=== PATIENT | female | born 1965 | race Two or more races ===

== ENCOUNTER 2020-10-22 13:37 | Inpatient (IN) | payer SELFPAY ==
[2020-10-22] MEDS ORDERED: Sodium Chloride 0.9% 10 ML Syringe FLUSH PRN ×2 (13:58→15:03)
--- NOTE | 2020-10-22 13:59 | EDM.PDOC ---
ED HPI GENERAL MEDICAL PROBLEM - General Chief Complaint: Respiratory Problem Stated Complaint: SOB/FEVER/FATIGUE/COUGH Time Seen by Provider: 10/22/20 13:53 Source of Information: Reports: Patient, RN Notes Reviewed - History of Present Illness INITIAL COMMENTS - FREE TEXT/NARRATIVE: 54 yr old female with onset of cough, fever, chills, dsypnea about 11 days ago. The difficulty breathing at rest and especially with any type of moverment has become worse yesterday and today. Temp 103.5 on arrival to ED. She has had Coleman, myalgias, generalized weakness. A couple of episodes of mild diarrhea, nothing severe. Has assumed she has covid. Has been self isolating. Has not been tested. Hx of mild borderline asthma, uses an inhaler occasionally. Does not smoke. No known hx Htn, or CAD. Hx of gestational diabetes. Generalized Pain Score (Numeric/FACES): 8 - Related Data Allergies Allergy/AdvReac Type Severity Reaction Status Date / Time shellfish derived Allergy Itching Verified 10/22/20 13:53 Sulfa (Sulfonamide Allergy Rash Verified 10/22/20 13:53 Antibiotics) Home Meds: Home Meds . [No Known Home Meds] 10/22/20 [History] ED ROS GENERAL - Review of Systems Review Of Systems: See Below Constitutional: Reports: Fever, Chills HEENT: Denies: Throat Pain Respiratory: Reports: Shortness of Breath, Cough Cardiovascular: Denies: Chest Pain GI/Abdominal: Reports: Diarrhea (a couple of episodes of mild diarrhea ), Decreased Appetite. Denies: Abdominal Pain, Nausea, Vomiting : Reports: No Symptoms Musculoskeletal: Reports: Other (generalized achiness) Skin: Denies: Rash Neurological: Reports: Headache ED EXAM, GENERAL - Physical Exam Exam: See Below General Appearance: Alert, Moderate Distress Head: Atraumatic Neck: Supple Respiratory/Chest: Respiratory Distress. No: Rales, Rhonchi, Wheezing Cardiovascular: Tachycardia GI/Abdominal: Soft, Non-Tender Extremities: Normal Inspection. No: Pedal Edema, Leg Pain, Increased Warmth, Redness Neurological: Alert, Oriented, No Motor/Sensory Deficits Skin Exam: Warm, Dry, Normal Color #1 Interpretation EKG Date: 10/22/20 Rhythm: Other (sinus tach) Tracy: Normal P-Wave: Present QRS: RBBB Course - Vital Signs Last Recorded V/S: Last Vital Signs Temp 103.6 F H 10/22/20 13:49 Pulse 129 H 10/22/20 13:49 Resp 28 H 10/22/20 13:49 BP 146/86 H 10/22/20 13:49 Pulse Ox 88 L 10/22/20 13:49 - Orders/Labs/Meds Orders: Active Orders 24 hr Category Date Time Status EKG 12 Lead [EKG Documentation Completion] [RC] STAT Care 10/22/20 13:57 Active Peripheral IV Care [RC] . DIRECTED Care 10/22/20 13:59 Active Chest 1V Frontal [CR] Stat Exams 10/22/20 13:56 Taken Chest PE [Ang Chest] [CT] Stat Exams 10/22/20 14:44 Taken Sodium Chloride 0.9% [Normal Saline] 100 ml Med 10/22/20 15:15 Active IV ASDIRECTED Sodium Chloride 0.9% [Saline Flush] Med 10/22/20 13:58 Active 10 ml FLUSH ASDIRECTED PRN Sodium Chloride 0.9% [Saline Flush] Med 10/22/20 15:03 Active 10 ml FLUSH ONETIME PRN Peripheral IV Insertion Adult [OM.PC] Stat Oth 10/22/20 13:59 Ordered Medication Orders Sodium Chloride (Normal Saline) 100 mls @ 60 mls/hr IV ASDIRECTED MICHOACANO Last Admin: 10/22/20 15:21 Dose: 60 mls/hr Documented by: GIORGI Sodium Chloride (Saline Flush) 10 ml FLUSH ASDIRECTED PRN PRN Reason: Keep Vein Open Last Admin: 10/22/20 14:12 Dose: 10 ml Documented by: VALENTINA Sodium Chloride (Saline Flush) 10 ml FLUSH ONETIME PRN PRN Reason: Keep Vein Open Last Admin: 10/22/20 15:21 Dose: 10 ml Documented by: GIORGI Labs: Laboratory Tests 10/22/20 10/22/20 10/22/20 Range/Units 14:10 14:10 14:18 WBC 7.87 (3.98-10.04) K/mm3 RBC 4.57 (3.98-5.22) M/mm3 Hgb 13.1 (11.2-15.7) gm/dl Hct 40.1 (34.1-44.9) % MCV 87.7 (79.4-94.8) fl MCH 28.7 (25.6-32.2) pg MCHC 32.7 (32.2-35.5) g/dl RDW Std Deviation 46.6 H (36.4-46.3) fL Plt Count 260 (182-369) K/mm3 MPV 11.5 (9.4-12.3) fl Neut % (Auto) 80.9 H (34.0-71.1) % Lymph % (Auto) 10.8 L (19.3-51.7) % Nicholas % (Auto) 6.9 (4.7-12.5) % Eos % (Auto) 0.8 (0.7-5.8) Baso % (Auto) 0.3 (0.1-1.2) % Neut # (Auto) 6.38 H (1.56-6.13) K/mm3 Lymph # (Auto) 0.85 L (1.18-3.74) K/mm3 Nicholas # (Auto) 0.54 H (0.24-0.36) K/mm3 Eos # (Auto) 0.06 (0.04-0.36) K/mm3 Baso # (Auto) 0.02 (0.01-0.08) K/mm3 Manual Slide Review Normal smear D-Dimer, Quantitative (0.19-0.50) mg/L Puncture Site Rt radial ABG pH 7.45 (7.35-7.45) ABG pCO2 35.8 (35.0-45.0) mmHg ABG pO2 59.0 L (80.0-100.0) mmHg ABG HCO3 24.4 (22.0-26.0) meq/L ABG O2 Saturation 89.6 L (96.0-97.0) % ABG Base Excess 1.2 (-2-2.0) Agustin Test Positive A-a Gradient 46 mmHg O2 Delivery Device Room air Oxygen Flow Rate 0.0 FiO2 21.00 (21.00-100.00) % Sodium (136-145) mEq/L Potassium (3.5-5.1) mEq/L Chloride (98-107) mEq/L Carbon Dioxide (21-32) mEq/L Anion Gap (5-15) BUN (7-18) mg/dL Creatinine (0.55-1.02) mg/dL Est Cr Clr Drug Dosing mL/min Estimated GFR (MDRD) (>60) mL/min BUN/Creatinine Ratio (14-18) Glucose (74-106) mg/dL Calcium (8.5-10.1) mg/dL Ferritin (8-252) ng/ml Total Bilirubin (0.2-1.0) mg/dL AST (15-37) U/L ALT (14-59) U/L Alkaline Phosphatase (46-116) U/L Lactate Dehydrogenase (81-234) U/L Troponin I (0.00-0.056) ng/mL C-Reactive Protein 12.7 H* (<1.0) mg/dL NT-Pro-B Natriuret Pep (0-125) pg/mL Total Protein (6.4-8.2) g/dl Albumin (3.4-5.0) g/dl Globulin gm/dL Albumin/Globulin Ratio (1-2) SARS-CoV-2 RNA (UBALDO) (NEGATIVE) 10/22/20 10/22/20 10/22/20 Range/Units 14:20 14:50 14:50 WBC (3.98-10.04) K/mm3 RBC (3.98-5.22) M/mm3 Hgb (11.2-15.7) gm/dl Hct (34.1-44.9) % MCV (79.4-94.8) fl MCH (25.6-32.2) pg MCHC (32.2-35.5) g/dl RDW Std Deviation (36.4-46.3) fL Plt Count (182-369) K/mm3 MPV (9.4-12.3) fl Neut % (Auto) (34.0-71.1) % Lymph % (Auto) (19.3-51.7) % Nicholas % (Auto) (4.7-12.5) % Eos % (Auto) (0.7-5.8) Baso % (Auto) (0.1-1.2) % Neut # (Auto) (1.56-6.13) K/mm3 Lymph # (Auto) (1.18-3.74) K/mm3 Nicholas # (Auto) (0.24-0.36) K/mm3 Eos # (Auto) (0.04-0.36) K/mm3 Baso # (Auto) (0.01-0.08) K/mm3 Manual Slide Review D-Dimer, Quantitative 0.58 H (0.19-0.50) mg/L Puncture Site ABG pH (7.35-7.45) ABG pCO2 (35.0-45.0) mmHg ABG pO2 (80.0-100.0) mmHg ABG HCO3 (22.0-26.0) meq/L ABG O2 Saturation (96.0-97.0) % ABG Base Excess (-2-2.0) Agustin Test A-a Gradient mmHg O2 Delivery Device Oxygen Flow Rate FiO2 (21.00-100.00) % Sodium 135 L (136-145) mEq/L Potassium 3.4 L (3.5-5.1) mEq/L Chloride 100 (98-107) mEq/L Carbon Dioxide 26 (21-32) mEq/L Anion Gap 12.4 (5-15) BUN 9 (7-18) mg/dL Creatinine 0.6 (0.55-1.02) mg/dL Est Cr Clr Drug Dosing 75.20 mL/min Estimated GFR (MDRD) > 60 (>60) mL/min BUN/Creatinine Ratio 15.0 (14-18) Glucose 111 H (74-106) mg/dL Calcium 8.9 (8.5-10.1) mg/dL Ferritin (8-252) ng/ml Total Bilirubin 0.3 (0.2-1.0) mg/dL AST 38 H (15-37) U/L ALT 48 (14-59) U/L Alkaline Phosphatase 77 (46-116) U/L Lactate Dehydrogenase 364 H (81-234) U/L Troponin I (0.00-0.056) ng/mL C-Reactive Protein (<1.0) mg/dL NT-Pro-B Natriuret Pep (0-125) pg/mL Total Protein 8.1 (6.4-8.2) g/dl Albumin 3.3 L (3.4-5.0) g/dl Globulin 4.8 gm/dL Albumin/Globulin Ratio 0.7 L (1-2) SARS-CoV-2 RNA (UBALDO) Positive H (NEGATIVE) 12/14/20 12/14/20 12/14/20 Range/Units 14:50 14:50 14:50 WBC (3.98-10.04) K/mm3 RBC (3.98-5.22) M/mm3 Hgb (11.2-15.7) gm/dl Hct (34.1-44.9) % MCV (79.4-94.8) fl MCH (25.6-32.2) pg MCHC (32.2-35.5) g/dl RDW Std Deviation (36.4-46.3) fL Plt Count (182-369) K/mm3 MPV (9.4-12.3) fl Neut % (Auto) (34.0-71.1) % Lymph % (Auto) (19.3-51.7) % Nicholas % (Auto) (4.7-12.5) % Eos % (Auto) (0.7-5.8) Baso % (Auto) (0.1-1.2) % Neut # (Auto) (1.56-6.13) K/mm3 Lymph # (Auto) (1.18-3.74) K/mm3 Nicholas # (Auto) (0.24-0.36) K/mm3 Eos # (Auto) (0.04-0.36) K/mm3 Baso # (Auto) (0.01-0.08) K/mm3 Manual Slide Review D-Dimer, Quantitative (0.19-0.50) mg/L Puncture Site ABG pH (7.35-7.45) ABG pCO2 (35.0-45.0) mmHg ABG pO2 (80.0-100.0) mmHg ABG HCO3 (22.0-26.0) meq/L ABG O2 Saturation (96.0-97.0) % ABG Base Excess (-2-2.0) Agustin Test A-a Gradient mmHg O2 Delivery Device Oxygen Flow Rate FiO2 (21.00-100.00) % Sodium (136-145) mEq/L Potassium (3.5-5.1) mEq/L Chloride (98-107) mEq/L Carbon Dioxide (21-32) mEq/L Anion Gap (5-15) BUN (7-18) mg/dL Creatinine (0.55-1.02) mg/dL Est Cr Clr Drug Dosing mL/min Estimated GFR (MDRD) (>60) mL/min BUN/Creatinine Ratio (14-18) Glucose (74-106) mg/dL Calcium (8.5-10.1) mg/dL Ferritin 672 H (8-252) ng/ml Total Bilirubin (0.2-1.0) mg/dL AST (15-37) U/L ALT (14-59) U/L Alkaline Phosphatase (46-116) U/L Lactate Dehydrogenase (81-234) U/L Troponin I < 0.017 (0.00-0.056) ng/mL C-Reactive Protein (<1.0) mg/dL NT-Pro-B Natriuret Pep 43 (0-125) pg/mL Total Protein (6.4-8.2) g/dl Albumin (3.4-5.0) g/dl Globulin gm/dL Albumin/Globulin Ratio (1-2) SARS-CoV-2 RNA (UBALDO) (NEGATIVE) Meds: Medications Generic Name Dose Route Start Last Admin Trade Name Freq PRN Reason Stop Dose Admin Sodium Chloride 100 mls @ 60 mls/hr 10/22/20 15:15 10/22/20 15:21 Normal Saline IV 60 mls/hr ASDIRECTED MICHOACANO Administration Sodium Chloride 10 ml 10/22/20 13:58 10/22/20 14:12 Saline Flush FLUSH 10 ml ASDIRECTED PRN Administration Keep Vein Open Sodium Chloride 10 ml 10/22/20 15:03 10/22/20 15:21 Saline Flush FLUSH 10 ml ONETIME PRN Administration Keep Vein Open Discontinued Medications Generic Name Dose Route Start Last Admin Trade Name Freq PRN Reason Stop Dose Admin Acetaminophen 975 mg 10/22/20 14:03 10/22/20 14:21 Tylenol PO 10/22/20 14:04 975 mg NOW ONE Administration Iopamidol 100 ml 10/22/20 15:03 10/22/20 15:21 Isovue-370 (76%) IVPUSH 10/22/20 15:04 100 ml ONETIME ONE Administration - Re-Assessments/Exams Free Text/Narrative Re-Assessment/Exam: 10/22/20 16:15. CXR shows very mild L peripheral infiltrates, question mild R sided peripheral infiltrates. However her intake 02 was only in the 86 to 88 range. ABD's room air showed a p02 of only 59. She was tachypnic, tachycardic and had a fever of 103.5 on arrival. Her covid screen did come back positive as expected. Due to her hypoxia CT Angiogram ordered before her labs came back to R/O or in for PE and also to better assess reason for quite marked hyppoxia. CT did R/O PE and did show typical ground glass infiltrates, mostly peripheral compatable and suggestive for covid pneumonia. With O2 at 3 L NC canula she is breathing more comfortably, sats running 95 to 97 %. She will be admitted for further treatment and careful monitering. Departure - Departure Time of Disposition: 16:30 Disposition: Admitted As Inpatient 64 Condition: Serious Clinical Impression: Pneumonia due to COVID-19 virus, Hypoxia - Discharge Information Referrals: La Nena Levy MD [Primary Care Provider] - Forms: ED Department Discharge Sepsis Event Note (ED) - Evaluation Sepsis Screening Result: Possible Sepsis Risk - Focused Exam Vital Signs: Vital Signs Temp Pulse Resp BP Pulse Ox 10/22/20 13:49 103.6 F H 129 H 28 H 146/86 H 88 L ED Communication - Discussed Case With (1) Discussed Case With (1): Admitting Provider (Dr Novak, decision to admit at about 16:40.) - My Orders Last 24 Hours: My Active Orders 10/22/20 13:56 Chest 1V Frontal [CR] Stat 10/22/20 13:57 EKG 12 Lead [EKG Documentation Completion] [RC] STAT 10/22/20 13:58 Sodium Chloride 0.9% [Saline Flush] 10 ml FLUSH ASDIRECTED PRN 10/22/20 13:59 Peripheral IV Care [RC] . DIRECTED Peripheral IV Insertion Adult [OM.PC] Stat 10/22/20 14:44 Chest PE [Ang Chest] [CT] Stat 10/22/20 15:03 Sodium Chloride 0.9% [Saline Flush] 10 ml FLUSH ONETIME PRN 10/22/20 15:15 Sodium Chloride 0.9% [Normal Saline] 100 ml IV ASDIRECTED - Assessment/Plan Last 24 Hours: My Active Orders 10/22/20 13:56 Chest 1V Frontal [CR] Stat 10/22/20 13:57 EKG 12 Lead [EKG Documentation Completion] [RC] STAT 10/22/20 13:58 Sodium Chloride 0.9% [Saline Flush] 10 ml FLUSH ASDIRECTED PRN 10/22/20 13:59 Peripheral IV Care [RC] . DIRECTED Peripheral IV Insertion Adult [OM.PC] Stat 10/22/20 14:44 Chest PE [Ang Chest] [CT] Stat 10/22/20 15:03 Sodium Chloride 0.9% [Saline Flush] 10 ml FLUSH ONETIME PRN 10/22/20 15:15 Sodium Chloride 0.9% [Normal Saline] 100 ml IV ASDIRECTED
[2020-10-22] MEDS ORDERED: Acetaminophen 325 MG Tab PO ONE (14:03)
[2020-10-22] MEDS ORDERED: Iopamidol 755 Mg/ML 100 ML Bottle IVPUSH ONE (15:03)
[2020-10-22] MEDS ORDERED: Sodium Chloride 0.9% 100 ML IV SCH (15:15)
[2020-10-22] MEDS ORDERED: FLU VACC QS2020-21(6MOS UP)/PF 60 MCG/0.5 ML SYRINGE IM ONE (19:00)
[2020-10-22] MEDS ORDERED: Acetaminophen 325 MG Tab PO PRN (19:55)
[2020-10-22] MEDS ORDERED: Ibuprofen 600 MG Tab PO PRN (19:58)
[2020-10-22] MEDS ORDERED: REMDESIVIR 200 MG in Sodium Chloride 0.9% 250 ML IV ONE (19:58)
[2020-10-22] MEDS ORDERED: Ondansetron 4 MG/2 ML SDV IV PRN (19:58)
[2020-10-22] MEDS ORDERED: SUMAtriptan 50 MG Tab PO PRN (20:06)
[2020-10-22] MEDS ORDERED: Albuterol 6.7 GM Inhaler INH PRN (20:06)
[2020-10-22] MEDS ORDERED: guaiFENesin 600 MG Tab.ER PO PRN (20:06)
--- NOTE | 2020-10-22 20:15 | PCM.HP.2 ---
H&P History of Present Illness - General Date of Service: 10/22/20 Admit Problem/Dx: Admission Diagnosis/Problem Admission Diagnosis/Problem Pneumonia - History of Present Illness Initial Comments - Free Text/Narative: 54-year-old female presents to the emergency department with cough, fever, chills, and dyspnea. She states that she had classic Covid type symptoms starting approximately 11 days ago. Patient self quarantined and at day 10 she thought she would start getting better. Today she had a video appointment with her primary care provider who told her to go to the emergency department. On arrival at the emergency department her temperature was 103.5. She had headache, myalgias, and general weakness, and mild diarrhea. She still has some shortness of breath. She has a history of migraines and occasional exercise- induced asthma. She has albuterol that she uses occasionally when she is exer cising by going for a hike. She does not smoke and rarely drinks. No other chronic medical conditions although she did have gestational diabetes. In the emergency department a chest x-ray showed very mild left peripheral infiltrates. She did require supplemental oxygen. Oxygen on presentation was 86 to 88%. CTA of the chest ruled out PE. Preliminary read showed typical groundglass infiltrates, mostly peripheral compatible and suggestive for Covid pneumonia. Generalized Pain Score (Numeric/FACES): 8 - Related Data Allergies/Adverse Reactions: Allergies Allergy/AdvReac Type Severity Reaction Status Date / Time shellfish derived Allergy Itching Verified 10/22/20 13:53 Sulfa (Sulfonamide Allergy Rash Verified 10/22/20 13:53 Antibiotics) milk chocolate Allergy Headache Uncoded 10/22/20 17:52 Home Medications: Home Meds Acetaminophen [Tylenol Extra Strength] 1,000 mg PO Q6H PRN 10/22/20 [History] Albuterol Sulfate [Albuterol Sulfate Hfa] 2 puff INH QID PRN 10/22/20 [History] Carbamide Peroxide [Ear Drops] 1 drop EARLF ASDIRECTED 10/22/20 [History] Cholecalciferol (Vitamin D3) [Vitamin D3] 1,000 units PO DAILY 10/22/20 [History] Juice Plus 2 cap PO DAILY 10/22/20 [History] SUMAtriptan succinate [Imitrex] 100 mg PO DAILY PRN 10/22/20 [History] guaiFENesin [Mucinex] 600 mg PO DAILY PRN 10/22/20 [History] Past Medical History - Past Health History Medical/Surgical History: Denies Medical/Surgical History HEENT History: Reports: Impaired Vision, Other (See Below) Other HEENT History: wears glasses Gastrointestinal History: Reports: GERD Genitourinary History: Reports: UTI, Recurrent BLADE FILER History: Reports: Endometrial Ablation Neurological History: Reports: Migraines, Vertigo Endocrine/Metabolic History: Reports: Diabetes, Gestational Hematologic History: Reports: Anemia, Blood Transfusion(s) - Infectious Disease History Infectious Disease History: Reports: Novel Coronavirus - Past Surgical History HEENT Surgical History: Reports: LASIK GI Surgical History: Reports: None Female Surgical History: Reports: Endometrial Ablation Neurological Surgical History: Reports: None Social & Family History - Family History Family Medical History: No Pertinent Family History - Tobacco Use Tobacco Use Status *Q: Never Tobacco User - Caffeine Use Caffeine Use: Reports: None - Recreational Drug Use Recreational Drug Use: No H&P Review of Systems - Review of Systems: Review Of Systems: Comprehensive ROS is negative, except as noted in HPI. Exam - Exam Exam: See Below - Vital Signs Vital Signs: Last Vital Signs Temp 100.9 F H 10/22/20 20:01 Pulse 96 10/22/20 20:01 Resp 16 10/22/20 20:01 BP 113/63 10/22/20 20:01 Pulse Ox 94 L 10/22/20 20:01 Weight: 132 lb 9.6 oz - Exam Quality Assessment: Supplemental Oxygen General: Alert, Oriented, 4 HEENT: Conjunctiva Clear, EOMI, Hearing Intact, Mucosa Moist & [place], Normal Nasal Septum Neck: Supple, Trachea Midline, 2 Lungs: Rales (Scattered throughout). No: Normal Respiratory Effort (Increased respiratory rate and effort) Cardiovascular: Regular Rate, Regular Rhythm. No: Systolic Murmur, Diastolic Murmur, Rubs, Gallop/S3 GI/Abdominal Exam: Normal Bowel Sounds, Soft, Non-Tender, No Organomegaly, No Distention, No Abnormal Bruit Extremities: Normal Inspection, Normal Range of Motion, Non-Tender, No Pedal Edema, Normal Capillary Refill Peripheral Pulses: 2+: Posterior Tibial (L), Posterior Tibial (R), Dorsalis Pedis (L), Dorsalis Pedis (R) Skin: Warm, Dry, Intact Neuro Extensive - Mental Status: Alert, Oriented x3, Normal Mood/Affect, Normal Cognition, Memory Intact Neuro Extensive - Motor, Sensory, Reflexes: CN II-XII Intact Psychiatric: Alert, Normal Affect, Normal Mood - Patient Data Lab Results Last 24 hrs: Laboratory Results - last 24 hr 10/22/20 10/22/20 10/22/20 Range/Units 14:10 14:10 14:18 WBC 7.87 (3.98-10.04) K/mm3 RBC 4.57 (3.98-5.22) M/mm3 Hgb 13.1 (11.2-15.7) gm/dl Hct 40.1 (34.1-44.9) % MCV 87.7 (79.4-94.8) fl MCH 28.7 (25.6-32.2) pg MCHC 32.7 (32.2-35.5) g/dl RDW Std Deviation 46.6 H (36.4-46.3) fL Plt Count 260 (182-369) K/mm3 MPV 11.5 (9.4-12.3) fl Neut % (Auto) 80.9 H (34.0-71.1) % Lymph % (Auto) 10.8 L (19.3-51.7) % [place] % (Auto) 6.9 (4.7-12.5) % Eos % (Auto) 0.8 (0.7-5.8) Baso % (Auto) 0.3 (0.1-1.2) % Neut # (Auto) 6.38 H (1.56-6.13) K/mm3 Lymph # (Auto) 0.85 L (1.18-3.74) K/mm3 [place] # (Auto) 0.54 H (0.24-0.36) K/mm3 Eos # (Auto) 0.06 (0.04-0.36) K/mm3 Baso # (Auto) 0.02 (0.01-0.08) K/mm3 Manual Slide Review Normal smear D-Dimer, Quantitative (0.19-0.50) mg/L Puncture Site Rt radial ABG pH 7.45 (7.35-7.45) ABG pCO2 35.8 (35.0-45.0) mmHg ABG pO2 59.0 L (80.0-100.0) mmHg ABG HCO3 24.4 (22.0-26.0) meq/L ABG O2 Saturation 89.6 L (96.0-97.0) % ABG Base Excess 1.2 (-2-2.0) Agustin Test Positive A-a Gradient 46 mmHg O2 Delivery Device Room air Oxygen Flow Rate 0.0 FiO2 21.00 (21.00-100.00) % Sodium (136-145) mEq/L Potassium (3.5-5.1) mEq/L Chloride (98-107) mEq/L Carbon Dioxide (21-32) mEq/L Anion Gap (5-15) BUN (7-18) mg/dL Creatinine (0.55-1.02) mg/dL Est Cr Clr Drug Dosing mL/min Estimated GFR (MDRD) (>60) mL/min BUN/Creatinine Ratio (14-18) Glucose (74-106) mg/dL Calcium (8.5-10.1) mg/dL Ferritin (8-252) ng/ml Total Bilirubin (0.2-1.0) mg/dL AST (15-37) U/L ALT (14-59) U/L Alkaline Phosphatase (46-116) U/L Lactate Dehydrogenase (81-234) U/L Troponin I (0.00-0.056) ng/mL C-Reactive Protein 12.7 H* (<1.0) mg/dL NT-Pro-B Natriuret Pep (0-125) pg/mL Total Protein (6.4-8.2) g/dl Albumin (3.4-5.0) g/dl Globulin gm/dL Albumin/Globulin Ratio (1-2) SARS-CoV-2 RNA (UBALDO) (NEGATIVE) 10/22/20 10/22/20 10/22/20 Range/Units 14:20 14:50 14:50 WBC (3.98-10.04) K/mm3 RBC (3.98-5.22) M/mm3 Hgb (11.2-15.7) gm/dl Hct (34.1-44.9) % MCV (79.4-94.8) fl MCH (25.6-32.2) pg MCHC (32.2-35.5) g/dl RDW Std Deviation (36.4-46.3) fL Plt Count (182-369) K/mm3 MPV (9.4-12.3) fl Neut % (Auto) (34.0-71.1) % Lymph % (Auto) (19.3-51.7) % [place] % (Auto) (4.7-12.5) % Eos % (Auto) (0.7-5.8) Baso % (Auto) (0.1-1.2) % Neut # (Auto) (1.56-6.13) K/mm3 Lymph # (Auto) (1.18-3.74) K/mm3 [place] # (Auto) (0.24-0.36) K/mm3 Eos # (Auto) (0.04-0.36) K/mm3 Baso # (Auto) (0.01-0.08) K/mm3 Manual Slide Review D-Dimer, Quantitative 0.58 H (0.19-0.50) mg/L Puncture Site ABG pH (7.35-7.45) ABG pCO2 (35.0-45.0) mmHg ABG pO2 (80.0-100.0) mmHg ABG HCO3 (22.0-26.0) meq/L ABG O2 Saturation (96.0-97.0) % ABG Base Excess (-2-2.0) Agustin Test A-a Gradient mmHg O2 Delivery Device Oxygen Flow Rate FiO2 (21.00-100.00) % Sodium 135 L (136-145) mEq/L Potassium 3.4 L (3.5-5.1) mEq/L Chloride 100 (98-107) mEq/L Carbon Dioxide 26 (21-32) mEq/L Anion Gap 12.4 (5-15) BUN 9 (7-18) mg/dL Creatinine 0.6 (0.55-1.02) mg/dL Est Cr Clr Drug Dosing 75.20 mL/min Estimated GFR (MDRD) > 60 (>60) mL/min BUN/Creatinine Ratio 15.0 (14-18) Glucose 111 H (74-106) mg/dL Calcium 8.9 (8.5-10.1) mg/dL Ferritin (8-252) ng/ml Total Bilirubin 0.3 (0.2-1.0) mg/dL AST 38 H (15-37) U/L ALT 48 (14-59) U/L Alkaline Phosphatase 77 (46-116) U/L Lactate Dehydrogenase 364 H (81-234) U/L Troponin I (0.00-0.056) ng/mL C-Reactive Protein (<1.0) mg/dL NT-Pro-B Natriuret Pep (0-125) pg/mL Total Protein 8.1 (6.4-8.2) g/dl Albumin 3.3 L (3.4-5.0) g/dl Globulin 4.8 gm/dL Albumin/Globulin Ratio 0.7 L (1-2) SARS-CoV-2 RNA (UBALDO) Positive H (NEGATIVE) 10/22/20 10/22/20 10/22/20 Range/Units 14:50 14:50 14:50 WBC (3.98-10.04) K/mm3 RBC (3.98-5.22) M/mm3 Hgb (11.2-15.7) gm/dl Hct (34.1-44.9) % MCV (79.4-94.8) fl MCH (25.6-32.2) pg MCHC (32.2-35.5) g/dl RDW Std Deviation (36.4-46.3) fL Plt Count (182-369) K/mm3 MPV (9.4-12.3) fl Neut % (Auto) (34.0-71.1) % Lymph % (Auto) (19.3-51.7) % [place] % (Auto) (4.7-12.5) % Eos % (Auto) (0.7-5.8) Baso % (Auto) (0.1-1.2) % Neut # (Auto) (1.56-6.13) K/mm3 Lymph # (Auto) (1.18-3.74) K/mm3 [place] # (Auto) (0.24-0.36) K/mm3 Eos # (Auto) (0.04-0.36) K/mm3 Baso # (Auto) (0.01-0.08) K/mm3 Manual Slide Review D-Dimer, Quantitative (0.19-0.50) mg/L Puncture Site ABG pH (7.35-7.45) ABG pCO2 (35.0-45.0) mmHg ABG pO2 (80.0-100.0) mmHg ABG HCO3 (22.0-26.0) meq/L ABG O2 Saturation (96.0-97.0) % ABG Base Excess (-2-2.0) Agustin Test A-a Gradient mmHg O2 Delivery Device Oxygen Flow Rate FiO2 (21.00-100.00) % Sodium (136-145) mEq/L Potassium (3.5-5.1) mEq/L Chloride (98-107) mEq/L Carbon Dioxide (21-32) mEq/L Anion Gap (5-15) BUN (7-18) mg/dL Creatinine (0.55-1.02) mg/dL Est Cr Clr Drug Dosing mL/min Estimated GFR (MDRD) (>60) mL/min BUN/Creatinine Ratio (14-18) Glucose (74-106) mg/dL Calcium (8.5-10.1) mg/dL Ferritin 672 H (8-252) ng/ml Total Bilirubin (0.2-1.0) mg/dL AST (15-37) U/L ALT (14-59) U/L Alkaline Phosphatase (46-116) U/L Lactate Dehydrogenase (81-234) U/L Troponin I < 0.017 (0.00-0.056) ng/mL C-Reactive Protein (<1.0) mg/dL NT-Pro-B Natriuret Pep 43 (0-125) pg/mL Total Protein (6.4-8.2) g/dl Albumin (3.4-5.0) g/dl Globulin gm/dL Albumin/Globulin Ratio (1-2) SARS-CoV-2 RNA (UBALDO) (NEGATIVE) Result Diagrams: 10/22/20 14:10 10/22/20 14:50 Sepsis Event Note - Evaluation Sepsis Screening Result: Possible Sepsis Risk - Focused Exam Vital Signs: Vital Signs Temp Temp Pulse Pulse Resp BP BP 10/22/20 20:01 100.9 F H 96 16 113/63 10/22/20 18:26 99.0 F 94 38 H 115/55 L 10/22/20 17:00 98 20 10/22/20 13:49 103.6 F H 129 H 28 H 146/86 H Pulse Ox 10/22/20 20:01 94 L 10/22/20 18:26 96 10/22/20 17:00 97 10/22/20 13:49 88 L - Problem List (1) Pneumonia due to COVID-19 virus SNOMED Code(s): 307839253422654172 ICD Code: U07.1 - COVID-19; J12.89 - OTHER VIRAL PNEUMONIA Status: Acute Current Visit: Yes Problem List Initiated/Reviewed/Updated: Yes Orders Last 24hrs: Active Orders 24 hr Category Date Time Status Admission Status [Patient Status] [ADT] Routine ADT 10/22/20 17:18 Active Influenza Vaccine Charge [RC] .DISCHARGE Care 10/22/20 18:35 Active Nurse Communication: Isolation [RC] ASDIRECTED Care 10/22/20 19:58 Ordered Oxygen Therapy [RC] PRN Care 10/22/20 19:58 Ordered Positioning, Patient [RC] ASDIRECTED Care 10/22/20 20:02 Ordered RT Incentive Spirometry [RC] ASDIRECTED Care 10/22/20 19:58 Ordered RT Post Treatment Assessment [RC] Click to Edit Care 10/22/20 20:10 Ordered RT Pre-Treatment Assessment [RC] Click to Edit Care 10/22/20 20:10 Ordered Up ad Kesha [RC] ASDIRECTED Care 10/22/20 19:58 Ordered VTE/DVT Education [RC] PER UNIT ROUTINE Care 10/22/20 19:58 Ordered Vital Signs [RC] Q4H Care 10/22/20 19:58 Ordered Regular Diet [DIET] Diet 10/23/20 Breakfast Ordered Chest 1V Frontal [CR] Stat Exams 10/22/20 13:56 Taken Chest PE [Ang Chest] [CT] Stat Exams 10/22/20 14:44 Taken C-REACTIVE PROTEIN [CHEM] AM Lab 10/23/20 05:11 Ordered C-REACTIVE PROTEIN [CHEM] AM Lab 10/24/20 05:11 Ordered C-REACTIVE PROTEIN [CHEM] AM Lab 10/25/20 05:11 Ordered C-REACTIVE PROTEIN [CHEM] AM Lab 10/26/20 05:11 Ordered C-REACTIVE PROTEIN [CHEM] AM Lab 10/27/20 05:11 Ordered CBC WITH AUTO DIFF [HEME] AM Lab 10/23/20 05:11 Ordered CBC WITH AUTO DIFF [HEME] AM Lab 10/24/20 05:11 Ordered CBC WITH AUTO DIFF [HEME] AM Lab 10/25/20 05:11 Ordered CBC WITH AUTO DIFF [HEME] AM Lab 10/26/20 05:11 Ordered CBC WITH AUTO DIFF [HEME] AM Lab 10/27/20 05:11 Ordered CMP [COMPREHENSIVE METABOLIC PN,CMP] [CHEM] AM Lab 10/23/20 05:11 Ordered CMP [COMPREHENSIVE METABOLIC PN,CMP] [CHEM] AM Lab 10/24/20 05:11 Ordered CMP [COMPREHENSIVE METABOLIC PN,CMP] [CHEM] AM Lab 10/25/20 05:11 Ordered CMP [COMPREHENSIVE METABOLIC PN,CMP] [CHEM] AM Lab 10/26/20 05:11 Ordered CMP [COMPREHENSIVE METABOLIC PN,CMP] [CHEM] AM Lab 10/27/20 05:11 Ordered DD [D-DIMER QUANTITATIVE] [COAG] AM Lab 10/23/20 05:11 Ordered DD [D-DIMER QUANTITATIVE] [COAG] AM Lab 10/24/20 05:11 Ordered DD [D-DIMER QUANTITATIVE] [COAG] AM Lab 10/25/20 05:11 Ordered DD [D-DIMER QUANTITATIVE] [COAG] AM Lab 10/26/20 05:11 Ordered DD [D-DIMER QUANTITATIVE] [COAG] AM Lab 10/27/20 05:11 Ordered MAGNESIUM [CHEM] AM Lab 10/23/20 05:11 Ordered MAGNESIUM [CHEM] AM Lab 10/24/20 05:11 Ordered MAGNESIUM [CHEM] AM Lab 10/25/20 05:11 Ordered MAGNESIUM [CHEM] AM Lab 10/26/20 05:11 Ordered MAGNESIUM [CHEM] AM Lab 10/27/20 05:11 Ordered PHOSPHORUS [CHEM] AM Lab 10/23/20 05:11 Ordered PHOSPHORUS [CHEM] AM Lab 10/24/20 05:11 Ordered PHOSPHORUS [CHEM] AM Lab 10/25/20 05:11 Ordered PHOSPHORUS [CHEM] AM Lab 10/26/20 05:11 Ordered PHOSPHORUS [CHEM] AM Lab 10/27/20 05:11 Ordered Acetaminophen [TylenoL] Med 10/22/20 19:55 Ordered 650 mg PO Q4H PRN Albuterol [Proventil HFA] Med 10/22/20 20:06 Ordered 2 puff INH QID PRN Enoxaparin [Lovenox] Med 10/23/20 09:00 Ordered 40 mg SUBCUT DAILY Ibuprofen [Motrin] Med 10/22/20 19:58 Ordered 600 mg PO Q6H PRN Ondansetron [Zofran] Med 10/22/20 19:58 Ordered 4 mg IV Q4H PRN Remdesivir 100 mg Med 10/23/20 20:00 Ordered Sodium Chloride 0.9% [Normal Saline] 100 ml IV Q24H SUMAtriptan succinate [Imitrex] Med 10/22/20 20:06 Ordered 100 mg PO DAILY PRN Sodium Chloride 0.9% [Normal Saline] 100 ml Med 10/22/20 15:15 Active IV ASDIRECTED Sodium Chloride 0.9% [Saline Flush] Med 10/22/20 13:58 Active 10 ml FLUSH ASDIRECTED PRN Sodium Chloride 0.9% [Saline Flush] Med 10/22/20 15:03 Active 10 ml FLUSH ONETIME PRN dexAMETHasone Med 10/22/20 20:15 Ordered 6 mg PO DAILY guaiFENesin [Mucinex] Med 10/22/20 20:06 Ordered 600 mg PO DAILY PRN Isolation [COMM] Stat Oth 10/22/20 19:58 Ordered Peripheral IV Insertion Adult [OM.PC] Stat Oth 10/22/20 13:59 Ordered RT Acapella [RESPCARE] Routine Oth 10/22/20 19:58 Ordered Resuscitation Status Routine Resus Stat 10/22/20 19:58 Ordered Medication Orders Acetaminophen (Tylenol) 650 mg PO Q4H PRN PRN Reason: Pain (mild 1-3) Albuterol (Proventil Hfa) 0 gm INH QID PRN PRN Reason: Shortness of Breath Dexamethasone (Dexamethasone) 6 mg PO DAILY [facility] Stop: 10/31/20 09:01 Enoxaparin Sodium (Lovenox) 40 mg SUBCUT DAILY MICHO[facility]ANO Guaifenesin (Mucinex) 600 mg PO DAILY PRN PRN Reason: Congestion Sodium Chloride (Normal Saline) 100 mls @ 60 mls/hr IV ASDIRECTED [facility] Last Admin: 10/22/20 15:21 Dose: 60 mls/hr Documented by: GIORGI Remdesivir 100 mg/ Sodium (Chloride) 100 mls @ 100 mls/hr IV Q24H MICHOACANO Stop: 10/26/20 20:59 Ibuprofen (Motrin) 600 mg PO Q6H PRN PRN Reason: Pain (moderate 4-6) Non-Formulary Medication (Sumatriptan Succinate [Imitrex]) 100 mg PO DAILY PRN PRN Reason: Headache Ondansetron HCl (Zofran) 4 mg IV Q4H PRN PRN Reason: Nausea/Vomiting Sodium Chloride (Saline Flush) 10 ml FLUSH ASDIRECTED PRN PRN Reason: Keep Vein Open Last Admin: 10/22/20 14:12 Dose: 10 ml Documented by: VALENTINA Sodium Chloride (Saline Flush) 10 ml FLUSH ONETIME PRN PRN Reason: Keep Vein Open Last Admin: 10/22/20 15:21 Dose: 10 ml Documented by: GIORGI Assessment/Plan Comment:: Assessment 54-year-old female with 11 days of symptoms consistent with COVID-19. COVID-[address] consistent with atypical versus viral pneumonia History of migraine headache disorder History of suicide induced asthma and gestational diabetes * On presentation patient's oxygen saturations were in the upper 80s requiring 3 L/min of O2 via nasal cannula. * Positive inflammatory markers consistent with COVID-19. * Positive COVID-19 nasal PCR. * CT scan consistent with atypical versus viral pneumonia. PE ruled out * She is out of the window for any benefit from convalescent plasma and may be out of the window for remdesivir. * Will need to follow her blood sugars relatively closely secondary to history of gestational diabetes. Plan * Admit to medical floor on continuous pulse ox and telemetry * Supplemental oxygen to keep SPO2 between 88 and 94% * Follow blood sugars closely * Check hemoglobin A1c, vitamin D. * Start remdesivir. This may be of minimal benefit, but there is very little risk to the medication and possible benefit. * Dexamethasone 6 mg now and then 6 mg daily for total of 10 doses. * Supplement with vitamin D and zinc * Use melatonin for sleep * Pepcid 20 mg twice daily * Aspirin daily * VTE prophylaxis with Lovenox * CODE STATUS: Full code * Length of stay a minimum of 5 days. - Mortality Measure Prognosis:: Good
[2020-10-22] MEDS ORDERED: Melatonin 3 MG Tab PO PRN (20:40)
[2020-10-22] MEDS: Dexamethasone 4 MG Tab PO SCH (21:04)
[2020-10-22] MEDS: Azithromycin 500 MG in Sodium Chloride 0.9% 250 ML IV SCH (21:06)
[2020-10-22] MEDS: Famotidine 10 MG Tab PO SCH (22:01)
[2020-10-23 07:45] LABS: HEMOGLOBIN A1C 6.7 % (4.50-6.20)
[2020-10-23 07:53] LABS: VITAMIN D,25-HYDROXY 33.9 ng/ml (30.0-100.0)
[2020-10-23] MEDS: Dexamethasone 4 MG Tab PO SCH (08:11)
[2020-10-23] MEDS: Enoxaparin 40 MG/0.4 ML Syringe SUBCUT SCH (08:12)
[2020-10-23] MEDS: Cholecalciferol (Vitamin D3) 5,000 UNIT Cap PO SCH (08:13)
[2020-10-23] MEDS: Famotidine 10 MG Tab PO SCH ×2 (08:13→21:00)
[2020-10-23] MEDS ORDERED: Potassium Chloride 20 MEQ Tab.ER PO ONE (09:00)
--- NOTE | 2020-10-23 09:05 | CT ---
CT chest Technique: Multiple axial sections through the chest were obtained. Intravenous contrast was utilized. Study was performed as a pulmonary angiogram protocol. Reconstructed coronal and sagittal images were obtained. Comparison: No prior study is available at this time for comparison. Findings: Pulmonary arteries are fairly well opacified and show no filling defects of pulmonary embolism. Thoracic aorta shows no aneurysm. Small lymph nodes are seen within the mediastinum and hilar region which are believed to be within normal limits. No pericardial thickening is appreciated. Visualized portions of the upper abdominal structures appear within normal limits. Patchy interstitial change is noted within both lungs. No pleural effusions are appreciated. Bony windows shows mild degenerative change within the spine with no acute osseous finding being seen. Impression: 1. Diffuse bilateral interstitial changes within both lungs. Findings are suspicious for COVID etiology, please correlate. Findings could also be chronic as well as representing normal pneumonia. 2. No findings of pulmonary embolism. Diagnostic code #3 I agree with preliminary report from [facility], finalized on 10/22/20, 4:46 PM [employer]AIL [employer]SEM[employer]ER
--- NOTE | 2020-10-23 12:29 | PCM.PN ---
- General Info Date of Service: 10/23/20 Admission Dx/Problem (Free Text): Admission Diagnosis/Problem Admission Diagnosis/Problem Pneumonia Subjective Update: Georgie states that she is feeling better this morning. She states the oxygen has helped and she is less short of breath. Appetite is good. She is down to 1 L/min nasal cannula of O2. Functional Status: Reports: Pain Controlled - Review of Systems General: Reports: No Symptoms HEENT: Reports: No Symptoms Pulmonary: Reports: Shortness of Breath, Cough Cardiovascular: Reports: No Symptoms Gastrointestinal: Reports: No Symptoms Musculoskeletal: Reports: No Symptoms Neurological: Reports: No Symptoms Psychiatric: Reports: No Symptoms - Patient Data Vitals - Most Recent: Last Vital Signs Temp 98.1 F 10/23/20 11:35 Pulse 83 10/23/20 11:35 Resp 26 H 10/23/20 11:35 BP 101/59 L 10/23/20 11:35 Pulse Ox 91 L 10/23/20 11:35 Weight - Most Recent: 133 lb I&O - Last 24 Hours: Intake & Output 10/22/20 10/23/20 10/23/20 22:59 06:59 14:59 Intake Total 1300 120 Output Total 1500 Balance -200 120 Lab Results Last 24 Hours: Laboratory Results - last 24 hr 10/22/20 10/22/20 10/22/20 Range/Units 14:10 14:10 14:18 WBC 7.87 (3.98-10.04) K/mm3 RBC 4.57 (3.98-5.22) M/mm3 Hgb 13.1 (11.2-15.7) gm/dl Hct 40.1 (34.1-44.9) % MCV 87.7 (79.4-94.8) fl MCH 28.7 (25.6-32.2) pg MCHC 32.7 (32.2-35.5) g/dl RDW Std Deviation 46.6 H (36.4-46.3) fL Plt Count 260 (182-369) K/mm3 MPV 11.5 (9.4-12.3) fl Neut % (Auto) 80.9 H (34.0-71.1) % Lymph % (Auto) 10.8 L (19.3-51.7) % Union % (Auto) 6.9 (4.7-12.5) % Eos % (Auto) 0.8 (0.7-5.8) Baso % (Auto) 0.3 (0.1-1.2) % Neut # (Auto) 6.38 H (1.56-6.13) K/mm3 Lymph # (Auto) 0.85 L (1.18-3.74) K/mm3 Union # (Auto) 0.54 H (0.24-0.36) K/mm3 Eos # (Auto) 0.06 (0.04-0.36) K/mm3 Baso # (Auto) 0.02 (0.01-0.08) K/mm3 Manual Slide Review Normal smear D-Dimer, Quantitative (0.19-0.50) mg/L Puncture Site Rt radial ABG pH 7.45 (7.35-7.45) ABG pCO2 35.8 (35.0-45.0) mmHg ABG pO2 59.0 L (80.0-100.0) mmHg ABG HCO3 24.4 (22.0-26.0) meq/L ABG O2 Saturation 89.6 L (96.0-97.0) % ABG Base Excess 1.2 (-2-2.0) Agustin Test Positive A-a Gradient 46 mmHg O2 Delivery Device Room air Oxygen Flow Rate 0.0 FiO2 21.00 (21.00-100.00) % Sodium (136-145) mEq/L Potassium (3.5-5.1) mEq/L Chloride (98-107) mEq/L Carbon Dioxide (21-32) mEq/L Anion Gap (5-15) BUN (7-18) mg/dL Creatinine (0.55-1.02) mg/dL Est Cr Clr Drug Dosing mL/min Estimated GFR (MDRD) (>60) mL/min BUN/Creatinine Ratio (14-18) Glucose (74-106) mg/dL Hemoglobin A1c (4.50-6.20) % Calcium (8.5-10.1) mg/dL Phosphorus (2.6-4.7) mg/dL Magnesium (1.8-2.4) mg/dl Ferritin (8-252) ng/ml Total Bilirubin (0.2-1.0) mg/dL AST (15-37) U/L ALT (14-59) U/L Alkaline Phosphatase (46-116) U/L Lactate Dehydrogenase (81-234) U/L Troponin I (0.00-0.056) ng/mL C-Reactive Protein 12.7 H* (<1.0) mg/dL NT-Pro-B Natriuret Pep (0-125) pg/mL Total Protein (6.4-8.2) g/dl Albumin (3.4-5.0) g/dl Globulin gm/dL Albumin/Globulin Ratio (1-2) Vitamin D 25-Hydroxy (30.0-100.0) ng/ml SARS-CoV-2 RNA (UBALDO) (NEGATIVE) 10/22/20 10/22/20 10/22/20 Range/Units 14:20 14:50 14:50 WBC (3.98-10.04) K/mm3 RBC (3.98-5.22) M/mm3 Hgb (11.2-15.7) gm/dl Hct (34.1-44.9) % MCV (79.4-94.8) fl MCH (25.6-32.2) pg MCHC (32.2-35.5) g/dl RDW Std Deviation (36.4-46.3) fL Plt Count (182-369) K/mm3 MPV (9.4-12.3) fl Neut % (Auto) (34.0-71.1) % Lymph % (Auto) (19.3-51.7) % Union % (Auto) (4.7-12.5) % Eos % (Auto) (0.7-5.8) Baso % (Auto) (0.1-1.2) % Neut # (Auto) (1.56-6.13) K/mm3 Lymph # (Auto) (1.18-3.74) K/mm3 Union # (Auto) (0.24-0.36) K/mm3 Eos # (Auto) (0.04-0.36) K/mm3 Baso # (Auto) (0.01-0.08) K/mm3 Manual Slide Review D-Dimer, Quantitative 0.58 H (0.19-0.50) mg/L Puncture Site ABG pH (7.35-7.45) ABG pCO2 (35.0-45.0) mmHg ABG pO2 (80.0-100.0) mmHg ABG HCO3 (22.0-26.0) meq/L ABG O2 Saturation (96.0-97.0) % ABG Base Excess (-2-2.0) Agustin Test A-a Gradient mmHg O2 Delivery Device Oxygen Flow Rate FiO2 (21.00-100.00) % Sodium 135 L (136-145) mEq/L Potassium 3.4 L (3.5-5.1) mEq/L Chloride 100 (98-107) mEq/L Carbon Dioxide 26 (21-32) mEq/L Anion Gap 12.4 (5-15) BUN 9 (7-18) mg/dL Creatinine 0.6 (0.55-1.02) mg/dL Est Cr Clr Drug Dosing 75.20 mL/min Estimated GFR (MDRD) > 60 (>60) mL/min BUN/Creatinine Ratio 15.0 (14-18) Glucose 111 H (74-106) mg/dL Hemoglobin A1c (4.50-6.20) % Calcium 8.9 (8.5-10.1) mg/dL Phosphorus (2.6-4.7) mg/dL Magnesium (1.8-2.4) mg/dl Ferritin (8-252) ng/ml Total Bilirubin 0.3 (0.2-1.0) mg/dL AST 38 H (15-37) U/L ALT 48 (14-59) U/L Alkaline Phosphatase 77 (46-116) U/L Lactate Dehydrogenase 364 H (81-234) U/L Troponin I (0.00-0.056) ng/mL C-Reactive Protein (<1.0) mg/dL NT-Pro-B Natriuret Pep (0-125) pg/mL Total Protein 8.1 (6.4-8.2) g/dl Albumin 3.3 L (3.4-5.0) g/dl Globulin 4.8 gm/dL Albumin/Globulin Ratio 0.7 L (1-2) Vitamin D 25-Hydroxy (30.0-100.0) ng/ml SARS-CoV-2 RNA (UBALDO) Positive H (NEGATIVE) 10/22/20 10/22/20 10/22/20 Range/Units 14:50 14:50 14:50 WBC (3.98-10.04) K/mm3 RBC (3.98-5.22) M/mm3 Hgb (11.2-15.7) gm/dl Hct (34.1-44.9) % MCV (79.4-94.8) fl MCH (25.6-32.2) pg MCHC (32.2-35.5) g/dl RDW Std Deviation (36.4-46.3) fL Plt Count (182-369) K/mm3 MPV (9.4-12.3) fl Neut % (Auto) (34.0-71.1) % Lymph % (Auto) (19.3-51.7) % Union % (Auto) (4.7-12.5) % Eos % (Auto) (0.7-5.8) Baso % (Auto) (0.1-1.2) % Neut # (Auto) (1.56-6.13) K/mm3 Lymph # (Auto) (1.18-3.74) K/mm3 Union # (Auto) (0.24-0.36) K/mm3 Eos # (Auto) (0.04-0.36) K/mm3 Baso # (Auto) (0.01-0.08) K/mm3 Manual Slide Review D-Dimer, Quantitative (0.19-0.50) mg/L Puncture Site ABG pH (7.35-7.45) ABG pCO2 (35.0-45.0) mmHg ABG pO2 (80.0-100.0) mmHg ABG HCO3 (22.0-26.0) meq/L ABG O2 Saturation (96.0-97.0) % ABG Base Excess (-2-2.0) Agustin Test A-a Gradient mmHg O2 Delivery Device Oxygen Flow Rate FiO2 (21.00-100.00) % Sodium (136-145) mEq/L Potassium (3.5-5.1) mEq/L Chloride (98-107) mEq/L Carbon Dioxide (21-32) mEq/L Anion Gap (5-15) BUN (7-18) mg/dL Creatinine (0.55-1.02) mg/dL Est Cr Clr Drug Dosing mL/min Estimated GFR (MDRD) (>60) mL/min BUN/Creatinine Ratio (14-18) Glucose (74-106) mg/dL Hemoglobin A1c (4.50-6.20) % Calcium (8.5-10.1) mg/dL Phosphorus (2.6-4.7) mg/dL Magnesium (1.8-2.4) mg/dl Ferritin 672 H (8-252) ng/ml Total Bilirubin (0.2-1.0) mg/dL AST (15-37) U/L ALT (14-59) U/L Alkaline Phosphatase (46-116) U/L Lactate Dehydrogenase (81-234) U/L Troponin I < 0.017 (0.00-0.056) ng/mL C-Reactive Protein (<1.0) mg/dL NT-Pro-B Natriuret Pep 43 (0-125) pg/mL Total Protein (6.4-8.2) g/dl Albumin (3.4-5.0) g/dl Globulin gm/dL Albumin/Globulin Ratio (1-2) Vitamin D 25-Hydroxy (30.0-100.0) ng/ml SARS-CoV-2 RNA (UBALDO) (NEGATIVE) 10/23/20 10/23/20 10/23/20 Range/Units 04:45 04:45 04:45 WBC 6.86 (3.98-10.04) K/mm3 RBC 4.02 (3.98-5.22) M/mm3 Hgb 11.4 D (11.2-15.7) gm/dl Hct 35.7 (34.1-44.9) % MCV 88.8 (79.4-94.8) fl MCH 28.4 (25.6-32.2) pg MCHC 31.9 L (32.2-35.5) g/dl RDW Std Deviation 46.0 (36.4-46.3) fL Plt Count 244 (182-369) K/mm3 MPV 11.8 (9.4-12.3) fl Neut % (Auto) 86.3 H (34.0-71.1) % Lymph % (Auto) 9.6 L (19.3-51.7) % Union % (Auto) 3.9 L (4.7-12.5) % Eos % (Auto) 0 L (0.7-5.8) Baso % (Auto) 0.1 (0.1-1.2) % Neut # (Auto) 5.91 (1.56-6.13) K/mm3 Lymph # (Auto) 0.66 L (1.18-3.74) K/mm3 Union # (Auto) 0.27 (0.24-0.36) K/mm3 Eos # (Auto) 0.00 L (0.04-0.36) K/mm3 Baso # (Auto) 0.01 (0.01-0.08) K/mm3 Manual Slide Review Normal smear D-Dimer, Quantitative 0.64 H (0.19-0.50) mg/L Puncture Site ABG pH (7.35-7.45) ABG pCO2 (35.0-45.0) mmHg ABG pO2 (80.0-100.0) mmHg ABG HCO3 (22.0-26.0) meq/L ABG O2 Saturation (96.0-97.0) % ABG Base Excess (-2-2.0) Agustin Test A-a Gradient mmHg O2 Delivery Device Oxygen Flow Rate FiO2 (21.00-100.00) % Sodium 142 (136-145) mEq/L Potassium 3.4 L (3.5-5.1) mEq/L Chloride 105 (98-107) mEq/L Carbon Dioxide 26 (21-32) mEq/L Anion Gap 14.4 (5-15) BUN 10 (7-18) mg/dL Creatinine 0.6 (0.55-1.02) mg/dL Est Cr Clr Drug Dosing 75.20 mL/min Estimated GFR (MDRD) > 60 (>60) mL/min BUN/Creatinine Ratio 16.7 (14-18) Glucose 141 H (74-106) mg/dL Hemoglobin A1c (4.50-6.20) % Calcium 8.7 (8.5-10.1) mg/dL Phosphorus 3.8 (2.6-4.7) mg/dL Magnesium 2.5 H (1.8-2.4) mg/dl Ferritin (8-252) ng/ml Total Bilirubin 0.2 (0.2-1.0) mg/dL AST 40 H (15-37) U/L ALT 54 (14-59) U/L Alkaline Phosphatase 64 (46-116) U/L Lactate Dehydrogenase (81-234) U/L Troponin I (0.00-0.056) ng/mL C-Reactive Protein 16.7 H* (<1.0) mg/dL NT-Pro-B Natriuret Pep (0-125) pg/mL Total Protein 7.5 (6.4-8.2) g/dl Albumin 2.9 L (3.4-5.0) g/dl Globulin 4.6 gm/dL Albumin/Globulin Ratio 0.6 L (1-2) Vitamin D 25-Hydroxy 33.9 (30.0-100.0) ng/ml SARS-CoV-2 RNA (UBALDO) (NEGATIVE) 10/23/20 Range/Units 04:45 WBC (3.98-10.04) K/mm3 RBC (3.98-5.22) M/mm3 Hgb (11.2-15.7) gm/dl Hct (34.1-44.9) % MCV (79.4-94.8) fl MCH (25.6-32.2) pg MCHC (32.2-35.5) g/dl RDW Std Deviation (36.4-46.3) fL Plt Count (182-369) K/mm3 MPV (9.4-12.3) fl Neut % (Auto) (34.0-71.1) % Lymph % (Auto) (19.3-51.7) % Union % (Auto) (4.7-12.5) % Eos % (Auto) (0.7-5.8) Baso % (Auto) (0.1-1.2) % Neut # (Auto) (1.56-6.13) K/mm3 Lymph # (Auto) (1.18-3.74) K/mm3 Union # (Auto) (0.24-0.36) K/mm3 Eos # (Auto) (0.04-0.36) K/mm3 Baso # (Auto) (0.01-0.08) K/mm3 Manual Slide Review D-Dimer, Quantitative (0.19-0.50) mg/L Puncture Site ABG pH (7.35-7.45) ABG pCO2 (35.0-45.0) mmHg ABG pO2 (80.0-100.0) mmHg ABG HCO3 (22.0-26.0) meq/L ABG O2 Saturation (96.0-97.0) % ABG Base Excess (-2-2.0) Agustin Test A-a Gradient mmHg O2 Delivery Device Oxygen Flow Rate FiO2 (21.00-100.00) % Sodium (136-145) mEq/L Potassium (3.5-5.1) mEq/L Chloride (98-107) mEq/L Carbon Dioxide (21-32) mEq/L Anion Gap (5-15) BUN (7-18) mg/dL Creatinine (0.55-1.02) mg/dL Est Cr Clr Drug Dosing mL/min Estimated GFR (MDRD) (>60) mL/min BUN/Creatinine Ratio (14-18) Glucose (74-106) mg/dL Hemoglobin A1c 6.70 H (4.50-6.20) % Calcium (8.5-10.1) mg/dL Phosphorus (2.6-4.7) mg/dL Magnesium (1.8-2.4) mg/dl Ferritin (8-252) ng/ml Total Bilirubin (0.2-1.0) mg/dL AST (15-37) U/L ALT (14-59) U/L Alkaline Phosphatase (46-116) U/L Lactate Dehydrogenase (81-234) U/L Troponin I (0.00-0.056) ng/mL C-Reactive Protein (<1.0) mg/dL NT-Pro-B Natriuret Pep (0-125) pg/mL Total Protein (6.4-8.2) g/dl Albumin (3.4-5.0) g/dl Globulin gm/dL Albumin/Globulin Ratio (1-2) Vitamin D 25-Hydroxy (30.0-100.0) ng/ml SARS-CoV-2 RNA (UBALDO) (NEGATIVE) Med Orders - Current: Current Medications Acetaminophen (Tylenol) 650 mg PO Q4H PRN PRN Reason: Pain (mild 1-3) Last Admin: 10/22/20 21:05 Dose: 650 mg Documented by: Albuterol (Proventil Hfa) 0 gm INH QID PRN PRN Reason: Shortness of Breath Cholecalciferol (Vitamin D3) 5,000 unit PO DAILY [facility]HO[facility]O Last Admin: 10/23/20 08:13 Dose: 5,000 unit Documented by: Dexamethasone (Dexamethasone) 6 mg PO DAILY [facility] Stop: 10/31/20 09:01 Last Admin: 10/23/20 08:11 Dose: 6 mg Documented by: Enoxaparin Sodium (Lovenox) 40 mg SUBCUT DAILY [facility] Last Admin: 10/23/20 08:12 Dose: 40 mg Documented by: Famotidine (Pepcid) 10 mg PO BID [facility] Last Admin: 10/23/20 08:13 Dose: 10 mg Documented by: Guaifenesin (Mucinex) 600 mg PO DAILY PRN PRN Reason: Congestion Remdesivir 100 mg/ Sodium (Chloride) 100 mls @ 100 mls/hr IV Q24H [facility] Stop: 10/26/20 20:59 Azithromycin 500 mg/ Sodium (Chloride) 250 mls @ 250 mls/hr IV Q24H [facility] Stop: 10/24/20 21:59 Last Admin: 10/22/20 21:06 Dose: 250 mls/hr Documented by: Ibuprofen (Motrin) 600 mg PO Q6H PRN PRN Reason: Pain (moderate 4-6) Melatonin (Melatonin) 6 mg PO BEDTIME PRN PRN Reason: Sleep Ondansetron HCl (Zofran) 4 mg IV Q4H PRN PRN Reason: Nausea/Vomiting Sodium Chloride (Saline Flush) 10 ml FLUSH ASDIRECTED PRN PRN Reason: Keep Vein Open Last Admin: 10/22/20 14:12 Dose: 10 ml Documented by: Sumatriptan Succinate (Imitrex) 100 mg PO DAILY PRN PRN Reason: Headache Discontinued Medications Acetaminophen (Tylenol) 975 mg PO NOW ONE Stop: 10/22/20 14:04 Last Admin: 10/22/20 14:21 Dose: 975 mg Documented by: Sodium Chloride (Normal Saline) 100 mls @ 60 mls/hr IV ASDIRECTED [facility] Last Admin: 10/22/20 15:21 Dose: 60 mls/hr Documented by: Remdesivir 200 mg/ Sodium (Chloride) 250 mls @ 250 mls/hr IV ONETIME ONE Stop: 10/22/20 19:59 Last Admin: 10/22/20 22:01 Dose: 250 mls/hr Documented by: Influenza Virus Vaccine (Pharmacy To Dose - Influenza Vaccine) 1 each IM ONETIME ONE Stop: 10/22/20 18:36 Influenza Virus Vaccine (Fluzone Quad Syringe) 60 mcg IM .ONCE ONE Stop: 10/22/20 19:01 Iopamidol (Isovue-370 (76%)) 100 ml IVPUSH ONETIME ONE Stop: 10/22/20 15:04 Last Admin: 10/22/20 15:21 Dose: 100 ml Documented by: Potassium Chloride (Klor-Con M20) 40 meq PO ONETIME ONE Stop: 10/23/20 09:01 Last Admin: 10/23/20 09:30 Dose: 40 meq Documented by: Sodium Chloride (Saline Flush) 10 ml FLUSH ONETIME PRN PRN Reason: Keep Vein Open Last Admin: 10/22/20 15:21 Dose: 10 ml Documented by: - Exam Quality Assessment: Supplemental Oxygen General: Alert, Oriented HEENT: Pupils Equal, Mucous Membr. Moist/[place] Neck: Supple Lungs: Normal Respiratory Effort, Rales (Throughout both lung riojas) Cardiovascular: Regular Rate, Regular Rhythm GI/Abdominal Exam: Normal Bowel Sounds, Soft, Non-Tender, No Distention Extremities: Normal Inspection, No Pedal Edema, Normal Capillary Refill Skin: Warm, Dry, Intact Psy/Mental Status: Alert, Normal Affect, Normal Mood Sepsis Event Note - Evaluation Sepsis Screening Result: No Definite Risk - Focused Exam Vital Signs: Vital Signs Temp Pulse Resp BP Pulse Ox Pulse Ox 10/23/20 11:35 98.1 F 83 26 H 101/59 L 91 L 10/23/20 10:12 98.2 F 96 91 L 10/23/20 10:00 91 L 10/23/20 08:10 98.6 F 80 20 92/60 92 L 10/23/20 06:24 97 10/23/20 03:21 99.1 F 83 18 118/69 96 10/23/20 01:04 98.1 F - Problem List & Annotations (1) Pneumonia due to COVID-19 virus SNOMED Code(s): 457951919637986702 Code(s): U07.1 - COVID-19; J12.89 - OTHER VIRAL PNEUMONIA Status: Acute Current Visit: Yes - Problem List Review Problem List Initiated/Reviewed/Updated: Yes - My Orders Last 24 Hours: My Active Orders 10/22/20 18:35 Influenza Vaccine Charge [RC] .DISCHARGE 10/22/20 19:55 Acetaminophen [TylenoL] 650 mg PO Q4H PRN 10/22/20 19:58 Nurse Communication: Isolation [RC] BID Oxygen Therapy [RC] DAILY RT Incentive Spirometry [RC] Q1HWA Up ad Kesha [RC] BID VTE/DVT Education [RC] DAILY Vital Signs [RC] Q4HR Ibuprofen [Motrin] 600 mg PO Q6H PRN Ondansetron [Zofran] 4 mg IV Q4H PRN Isolation [COMM] Stat Resuscitation Status Routine 10/22/20 20:02 Positioning, Patient [RC] BID 10/22/20 20:06 Albuterol [Proventil HFA] 0 gm INH QID PRN SUMAtriptan [Imitrex] 100 mg PO DAILY PRN guaiFENesin [Mucinex] 600 mg PO DAILY PRN 10/22/20 20:10 RT Post Treatment Assessment [RC] Click to Edit RT Pre-Treatment Assessment [RC] Click to Edit 10/22/20 20:15 dexAMETHasone 6 mg PO DAILY 10/22/20 20:40 Melatonin 6 mg PO BEDTIME PRN 10/22/20 21:00 Azithromycin [Zithromax] 500 mg Sodium Chloride 0.9% [Normal Saline (AdvBag)] 250 ml IV Q24H Famotidine [Pepcid] 10 mg PO BID 10/23/20 Breakfast Regular Diet [DIET] 10/23/20 08:03 RT Chest Physiotherapy [RC] ASDIRECTED 10/23/20 09:00 Cholecalciferol (Vitamin D3) [Vitamin D3] 5,000 unit PO DAILY Enoxaparin [Lovenox] 40 mg SUBCUT DAILY 10/23/20 20:00 Remdesivir 100 mg Sodium Chloride 0.9% [Normal Saline] 100 ml IV Q24H 10/24/20 05:11 C-REACTIVE PROTEIN [CHEM] AM CBC WITH AUTO DIFF [HEME] AM CMP [COMPREHENSIVE METABOLIC PN,CMP] [CHEM] AM DD [D-DIMER QUANTITATIVE] [COAG] AM MAGNESIUM [CHEM] AM PHOSPHORUS [CHEM] AM 10/25/20 05:11 C-REACTIVE PROTEIN [CHEM] AM CBC WITH AUTO DIFF [HEME] AM CMP [COMPREHENSIVE METABOLIC PN,CMP] [CHEM] AM DD [D-DIMER QUANTITATIVE] [COAG] AM MAGNESIUM [CHEM] AM PHOSPHORUS [CHEM] AM 10/26/20 05:11 C-REACTIVE PROTEIN [CHEM] AM CBC WITH AUTO DIFF [HEME] AM CMP [COMPREHENSIVE METABOLIC PN,CMP] [CHEM] AM DD [D-DIMER QUANTITATIVE] [COAG] AM MAGNESIUM [CHEM] AM PHOSPHORUS [CHEM] AM 10/27/20 05:11 C-REACTIVE PROTEIN [CHEM] AM CBC WITH AUTO DIFF [HEME] AM CMP [COMPREHENSIVE METABOLIC PN,CMP] [CHEM] AM DD [D-DIMER QUANTITATIVE] [COAG] AM MAGNESIUM [CHEM] AM PHOSPHORUS [CHEM] AM - Plan Plan:: Assessment 54-year-old female with 11 days of symptoms consistent with COVID-19. COVID-[address] consistent with atypical versus viral pneumonia History of migraine headache disorder History of exercise induced asthma and gestational diabetes Elevated hemoglobin A1c and fasting blood sugar consistent with diabetes Hypokalemia * Saturations did improve overnight and is currently on 1 L nasal cannula. * Improved in symptoms and oxygenation. * Started dexamethasone and remdesivir last night. * Hemoglobin A1c did come back at 6.7 and this morning's glucose was 144 * Vitamin D was adequate at 34 * CRP and D-dimer did increase marginally, 16.7 and 0.64 respectively * Potassium slightly low at 3.4 Plan * Supplemental oxygen to keep SPO2 between 88 and 94% * Follow blood sugars closely4 times daily * Low-dose sliding scale insulin * Daily Covid related labs in the morning * Continue remdesivir. This may be of minimal benefit, but there is very little risk to the medication and possible benefit. * Dexamethasone 6 mg now and then 6 mg daily for total of 10 doses. * Continue supplementing with vitamin D and zinc * Use melatonin for sleep * Pepcid 20 mg twice daily * Aspirin daily * VTE prophylaxis with Lovenox * CODE STATUS: Full code * Length of stay a minimum of 5 days.
[2020-10-23] MEDS: Aspirin 81 MG Tab.EC PO SCH (14:00)
--- NOTE | 2020-10-23 16:18 | CR ---
Chest: Portable view of the chest was obtained. Comparison: No previous chest imaging is available. Findings: Patchy areas of increased density are seen within the periphery of both lungs. Heart size is within normal limits for portable technique. Upper mediastinum is normal. Bony structures are unremarkable. Impression: 1. Patchy areas of increased density within both peripheral lungs. Findings are suspicious for early COVID change. Please correlate. Diagnostic code #3
[2020-10-23] MEDS ORDERED: REMDESIVIR 100 MG in Sodium Chloride 0.9% 100 ML IV SCH (20:00)
[2020-10-23] MEDS: Azithromycin 500 MG in Sodium Chloride 0.9% 250 ML IV SCH (21:08)
[2020-10-24] MEDS: Dexamethasone 4 MG Tab PO SCH (08:41)
[2020-10-24] MEDS: Cholecalciferol (Vitamin D3) 5,000 UNIT Cap PO SCH (08:41)
[2020-10-24] MEDS: Enoxaparin 40 MG/0.4 ML Syringe SUBCUT SCH (08:41)
[2020-10-24] MEDS: Famotidine 10 MG Tab PO SCH (08:42)
[2020-10-24] MEDS: Aspirin 81 MG Tab.EC PO SCH (08:42)
--- NOTE | 2020-10-24 11:41 | PCM.DCSUM1 ---
Discharge Summary - Hospital Course HPI Initial Comments: 54-year-old female presents to the emergency department with cough, fever, chills, and dyspnea. She states that she had classic Covid type symptoms starting approximately 11 days ago. Patient self quarantined and at day 10 she thought she would start getting better. Today she had a video appointment with her primary care provider who told her to go to the emergency department. On arrival at the emergency department her temperature was 103.5. She had headache, myalgias, and general weakness, and mild diarrhea. She still has some shortness of breath. She has a history of migraines and occasional exercise- induced asthma. She has albuterol that she uses occasionally when she is exercising by going for a hike. She does not smoke and rarely drinks. No other chronic medical conditions although she did have gestational diabetes. In the emergency department a chest x-ray showed very mild left peripheral infiltrates. She did require supplemental oxygen. Oxygen on presentation was 86 to 88%. CTA of the chest ruled out PE. Preliminary read showed typical groundglass infiltrates, mostly peripheral compatible and suggestive for Covid pneumonia. Assessment 54-year-old female with 11 days of symptoms consistent with COVID-19. COVID-[address] consistent with atypical versus viral pneumonia History of migraine headache disorder History of suicide induced asthma and gestational diabetes * On presentation patient's oxygen saturations were in the upper 80s requiring 3 L/min of O2 via nasal cannula. * Positive inflammatory markers consistent with COVID-19. * Positive COVID-19 nasal PCR. * CT scan consistent with atypical versus viral pneumonia. PE ruled out * She is out of the window for any benefit from convalescent plasma and may be out of the window for remdesivir. * Will need to follow her blood sugars relatively closely secondary to history of gestational diabetes. Plan * Admit to medical floor on continuous pulse ox and telemetry * Supplemental oxygen to keep SPO2 between 88 and 94% * Follow blood sugars closely * Check hemoglobin A1c, vitamin D. * Start remdesivir. This may be of minimal benefit, but there is very little risk to the medication and possible benefit. * Dexamethasone 6 mg now and then 6 mg daily for total of 10 doses. * Supplement with vitamin D and zinc * Use melatonin for sleep * Pepcid 20 mg twice daily * Aspirin daily * VTE prophylaxis with Lovenox * CODE STATUS: Full code * Length of stay a minimum of 5 days. Diagnosis: Stroke: No - Discharge Data Discharge Date: 10/24/20 Discharge Disposition: Home, Self-Care 01 Condition: Good - Referral to Home Health Primary Care Physician: La Nena Levy MD - Discharge Diagnosis/Problem(s) (1) Pneumonia due to COVID-19 virus SNOMED Code(s): [id number] ICD Code: U07.1 - COVID-19; J12.89 - OTHER VIRAL PNEUMONIA Status: Acute Current Visit: Yes (2) Diabetes type 2, controlled SNOMED Code(s): 25231369, 910831035 ICD Code: E11.9 - TYPE 2 DIABETES MELLITUS WITHOUT COMPLICATIONS Status: Acute Current Visit: Yes Qualifiers: Diabetes mellitus complication status: without complication - Patient Summary/Data Consults: Consultations 10/24/20 11:30 Consult to Diabetic Nurse Specialist [CONS] Routine Hospital Course: Patient was admitted for symptomatic treatment of her COVID-19 pneumonia. She was started on remdesivir and dexamethasone and given oxygen supplementation. Patient was weaned off of oxygen on day 2. Hemoglobin A1c was performed because of concerns of possible diabetes since she had gestational diabetes. Hemoglobin A1c was 6.7 suggesting that she does have type 2 diabetes. Diabetic education was consulted and patient should follow-up with her primary care provider to discuss these results. She will not be sent home on diabetic medication or blood sugar monitor. She also would not be sent home on dexamethasone since this can increase blood sugars. Patient's risk benefit is likely weighed against dexamethasone since she was so easy to wean off of oxygen. Follow-up with your primary care provider in the next week or 2. - Patient Instructions Diet: Diabetic Diet Activity: As Tolerated Driving: May Drive Today Showering/Bathing: May Shower Other/Special Instructions: Follow-up with your primary care provider in the next 2 weeks to discuss new diagnosis of diabetes. - Discharge Plan *PRESCRIPTION DRUG MONITORING PROGRAM REVIEWED*: No *COPY OF PRESCRIPTION DRUG MONITORING REPORT IN PATIENT [place]: No Prescriptions/Med Rec: Azithromycin 500 mg PO ONETIME #2 tablet Home Medications: Home Meds Acetaminophen [Tylenol Extra Strength] 1,000 mg PO Q6H PRN 10/22/20 [History] Albuterol Sulfate [Albuterol Sulfate Hfa] 2 puff INH QID PRN 10/22/20 [History] Carbamide Peroxide [Ear Drops] 1 drop EARLF ASDIRECTED 10/22/20 [History] Cholecalciferol (Vitamin D3) [Vitamin D3] 1,000 units PO DAILY 10/22/20 [History] Juice Plus 2 cap PO DAILY 10/22/20 [History] SUMAtriptan succinate [Imitrex] 100 mg PO DAILY PRN 10/22/20 [History] guaiFENesin [Mucinex] 600 mg PO DAILY PRN 10/22/20 [History] Azithromycin 500 mg PO ONETIME #2 tablet 10/24/20 [Rx] Patient Handouts: Type 2 Diabetes Mellitus, Diagnosis, Adult, COVID-19, Sepsis, Diagnosis, Adult Forms: ED Department Discharge Referrals: La Nena Levy MD [Primary Care Provider] - - Discharge Summary/Plan Comment DC Time >30 min.: No - General Info Date of Service: 10/24/20 Admission Dx/Problem (Free Text: Admission Diagnosis/Problem Admission Diagnosis/Problem Pneumonia Subjective Update: Patient doing well. Up walking in her room and showering on her own. Appetite is good. No shortness of breath. Functional Status: Reports: Pain Controlled - Review of Systems General: Reports: No Symptoms HEENT: Reports: No Symptoms Pulmonary: Reports: No Symptoms Cardiovascular: Reports: No Symptoms Gastrointestinal: Reports: No Symptoms Musculoskeletal: Reports: No Symptoms - Patient Data Vitals - Most Recent: Last Vital Signs Temp 98.1 F 10/24/20 11:25 Pulse 92 10/24/20 11:25 Resp 24 H 10/24/20 11:25 BP 114/61 10/24/20 11:25 Pulse Ox 97 10/24/20 11:25 Weight - Most Recent: 135 lb 1.6 oz I&O - Last 24 hours: Intake & Output 10/23/20 10/24/20 10/24/20 22:59 06:59 14:59 Intake Total 1460 1050 120 Output Total 350 1600 Balance 1110 -550 120 Lab Results - Last 24 hrs: Laboratory Results - last 24 hr 10/24/20 10/24/20 10/24/20 Range/Units 04:59 04:59 04:59 WBC 7.52 (3.98-10.04) K/mm3 RBC 3.99 (3.98-5.22) M/mm3 Hgb 11.4 (11.2-15.7) gm/dl Hct 35.2 (34.1-44.9) % MCV 88.2 (79.4-94.8) fl MCH 28.6 (25.6-32.2) pg MCHC 32.4 (32.2-35.5) g/dl RDW Std Deviation 45.5 (36.4-46.3) fL Plt Count 299 (182-369) K/mm3 MPV 11.5 (9.4-12.3) fl Neut % (Auto) 72.0 H (34.0-71.1) % Lymph % (Auto) 18.0 L (19.3-51.7) % Kemper % (Auto) 9.6 (4.7-12.5) % Eos % (Auto) 0 L (0.7-5.8) Baso % (Auto) 0.3 (0.1-1.2) % Neut # (Auto) 5.42 (1.56-6.13) K/mm3 Lymph # (Auto) 1.35 (1.18-3.74) K/mm3 Kemper # (Auto) 0.72 H (0.24-0.36) K/mm3 Eos # (Auto) 0.00 L (0.04-0.36) K/mm3 Baso # (Auto) 0.02 (0.01-0.08) K/mm3 Manual Slide Review Normal smear D-Dimer, Quantitative 0.41 (0.19-0.50) mg/L Sodium 142 (136-145) mEq/L Potassium 3.7 (3.5-5.1) mEq/L Chloride 107 (98-107) mEq/L Carbon Dioxide 26 (21-32) mEq/L Anion Gap 12.7 (5-15) BUN 14 (7-18) mg/dL Creatinine 0.6 (0.55-1.02) mg/dL Est Cr Clr Drug Dosing 75.20 mL/min Estimated GFR (MDRD) > 60 (>60) mL/min BUN/Creatinine Ratio 23.3 H (14-18) Glucose 124 H (74-106) mg/dL Calcium 8.9 (8.5-10.1) mg/dL Phosphorus 3.8 (2.6-4.7) mg/dL Magnesium 2.3 (1.8-2.4) mg/dl Total Bilirubin 0.2 (0.2-1.0) mg/dL AST 32 (15-37) U/L ALT 58 (14-59) U/L Alkaline Phosphatase 57 (46-116) U/L C-Reactive Protein 9.0 H* (<1.0) mg/dL Total Protein 7.1 (6.4-8.2) g/dl Albumin 2.7 L (3.4-5.0) g/dl Globulin 4.4 gm/dL Albumin/Globulin Ratio 0.6 L (1-2) Med Orders - Current: Current Medications Acetaminophen (Tylenol) 650 mg PO Q4H PRN PRN Reason: Pain (mild 1-3) Last Admin: 10/22/20 21:05 Dose: 650 mg Documented by: Albuterol (Proventil Hfa) 0 gm INH QID PRN PRN Reason: Shortness of Breath Aspirin (Halfprin) 81 mg PO DAILY [facility] Last Admin: 10/24/20 08:42 Dose: 81 mg Documented by: Cholecalciferol (Vitamin D3) 5,000 unit PO DAILY [facility] Last Admin: 10/24/20 08:41 Dose: 5,000 unit Documented by: Dexamethasone (Dexamethasone) 6 mg PO DAILY [facility] Stop: 10/31/20 09:01 Last Admin: 10/24/20 08:41 Dose: 6 mg Documented by: Enoxaparin Sodium (Lovenox) 40 mg SUBCUT DAILY [facility] Last Admin: 10/24/20 08:41 Dose: 40 mg Documented by: Famotidine (Pepcid) 10 mg PO BID [facility] Last Admin: 10/24/20 08:42 Dose: 10 mg Documented by: Guaifenesin (Mucinex) 600 mg PO DAILY PRN PRN Reason: Congestion Remdesivir 100 mg/ Sodium (Chloride) 100 mls @ 100 mls/hr IV Q24H [facility] Stop: 10/26/20 20:59 Last Admin: 10/23/20 19:42 Dose: 100 mls/hr Documented by: Azithromycin 500 mg/ Sodium (Chloride) 250 mls @ 250 mls/hr IV Q24H [facility] Stop: 10/24/20 21:59 Last Admin: 10/23/20 21:08 Dose: 250 mls/hr Documented by: Ibuprofen (Motrin) 600 mg PO Q6H PRN PRN Reason: Pain (moderate 4-6) Melatonin (Melatonin) 6 mg PO BEDTIME PRN PRN Reason: Sleep Ondansetron HCl (Zofran) 4 mg IV Q4H PRN PRN Reason: Nausea/Vomiting Sodium Chloride (Saline Flush) 10 ml FLUSH ASDIRECTED PRN PRN Reason: Keep Vein Open Last Admin: 10/22/20 14:12 Dose: 10 ml Documented by: Sumatriptan Succinate (Imitrex) 100 mg PO DAILY PRN PRN Reason: Headache Discontinued Medications Acetaminophen (Tylenol) 975 mg PO NOW ONE Stop: 10/22/20 14:04 Last Admin: 10/22/20 14:21 Dose: 975 mg Documented by: Sodium Chloride (Normal Saline) 100 mls @ 60 mls/hr IV ASDIRECTED [facility] Last Admin: 10/22/20 15:21 Dose: 60 mls/hr Documented by: Remdesivir 200 mg/ Sodium (Chloride) 250 mls @ 250 mls/hr IV ONETIME ONE Stop: 10/22/20 19:59 Last Admin: 10/22/20 22:01 Dose: 250 mls/hr Documented by: Influenza Virus Vaccine (Pharmacy To Dose - Influenza Vaccine) 1 each IM ONETIME ONE Stop: 10/22/20 18:36 Influenza Virus Vaccine (Fluzone Quad [id number] Syringe) 60 mcg IM .ONCE ONE Stop: 10/22/20 19:01 Iopamidol (Isovue-370 (76%)) 100 ml IVPUSH ONETIME ONE Stop: 10/22/20 15:04 Last Admin: 10/22/20 15:21 Dose: 100 ml Documented by: Potassium Chloride (Klor-Con M20) 40 meq PO ONETIME ONE Stop: 10/23/20 09:01 Last Admin: 10/23/20 09:30 Dose: 40 meq Documented by: Sodium Chloride (Saline Flush) 10 ml FLUSH ONETIME PRN PRN Reason: Keep Vein Open Last Admin: 10/22/20 15:21 Dose: 10 ml Documented by: - Exam Quality Assessment: Denies: Supplemental Oxygen General: Reports: Alert, Oriented HEENT: Reports: Pupils Equal, Mucous Membr. Moist/Wall Neck: Reports: Supple Lungs: Reports: Normal Respiratory Effort, Rales (Throughout) Cardiovascular: Reports: Regular Rate, Regular Rhythm GI/Abdominal Exam: Normal Bowel Sounds, Soft, Non-Tender, No Distention Psy/Mental Status: Reports: Alert, Normal Affect, Normal Mood
== END 2020-10-24 16:30 | disposition home or self-care (01) | DRG 177 ==
LOC: JD.ED 13:37 → JD.MS 17:18
PROVIDERS: ADMIT Family Medicine; ATTEND Family Medicine
PROC: XW033E5 Introduction of Remdesivir Anti-infective into Peripheral Vein, Percutaneous Approach, New Technology Group 5 (ICD-10-PCS; principal; 2020-10-22)
PROC: 8E0ZXY6 Isolation (ICD-10-PCS; 2020-10-22)
DX: U07.1 COVID-19 (principal); J12.89 Other viral pneumonia; G43.909 Migraine, unspecified, not intractable, without status migrainosus; E11.9 Type 2 diabetes mellitus without complications; Z91.013 Allergy to seafood; H54.7 Unspecified visual loss; K21.9 Gastro-esophageal reflux disease without esophagitis; Z87.440 Personal history of urinary (tract) infections; D64.9 Anemia, unspecified; Z88.2 Allergy status to sulfonamides
CPT/HCPCS: 36415; 36600; 71045; 71045-26; 71275; 71275-26; 80053; 82306; 82728; 82803; 83036; 83615; 83735; 83880; 84100; 84484; 85025; 85379; 86140; 90686; 93005; 93010; 94667; 94761; 99221; 99232; 99238; 99284; 99285-25; A9270-GY; G0008; J0456; J1650; J7050; J8540; Q9967; U0002